=== PATIENT | female | born 1965 | race Caucasian/White ===

== ENCOUNTER 2017-04-03 20:45 | Emergency (ER) | payer BC ==
[~2017-04-03] VITALS: Ht 165.1 cm; Wt 66.0 kg
[~2017-04-03 20:45] MED LIST: AMOX500T PO; ASPI-130 PO; DICL-86 PO; FIORTAB4 PO; HYDR200T42 PO; LORT7.5T3 PO; PRED5TAB PO; PRIN10TA PO; RELP20TA PO; TEMA15CA PO; ZOFR4TAB3 SL
[2017-04-03 20:49] VITALS: BP 151/85; PULSE 85; RESP 15; TEMP 98.8; O2SAT 99
--- NOTE | 2017-04-03 21:42 | PD ---
HPI Chief Complaint: Injury Time Seen by Provider: 21:34 Travel History International Travel<30 days: No Contact w/Intl Traveler<30days: No Traveled to known affect area: No History of Present Illness HPI 51-year-old female presents for evaluation of dorsal left hand pain. She reports a prior to arrival her dog pulled her and she hit her left hand on the door. She was seen at an urgent care center and told that she "probably has a dislocation" in her hand and was referred here for further evaluation. She has a throbbing pain to the dorsal mid left hand which is constant, worse palpation , associated with bruising. Denies any numbness or tingling. She has no other complaints. PFSH Past Medical History Cancer: No Cardiovascular Problems: Yes (MVP) Diabetes: No Diminished Hearing: No Endocrine: No Genitourinary: No Headaches: Yes (MIGRAINES) Hepatitis: No Hiatal Hernia: No Hypertension: Yes (LISINOPRIL FOR VALVE ISSUE) Immune Disorder: Yes (LUPUS) Musculoskeletal: No Neurologic: Yes (MIGRAINES) Psychiatric: Yes (ANXIETY) Reproductive: Yes (PELVIC PAIN, OVARIAN CYST, FIBROIDS) Respiratory: No Migraines: Yes Thyroid Disease: No Tetanus Vaccination: Unknown Influenza Vaccination: Yes ?: Not Tubal Ligation: Yes Past Surgical History AICD: No Gynecologic Surgery: Yes (C SECTION, D & C, TUBAL LIG.) Hysterectomy: Yes Joint Replacement: No Pacemaker: No Other Surgery: Yes (LEFT LUMPECTOMY) Social History Alcohol Use: No Tobacco Use: No Substance Use: No Allergies-Medications (Allergen,Severity, Reaction): Coded Allergies: Bactrim (Verified Allergy, Severe, 04/03/17) Sulfa (Verified Allergy, Severe, 04/03/17) Reported Meds & Prescriptions Reported Meds & Active Scripts Active Tylenol-Codeine #3 (Acetaminophen-Codeine) 300-30 mg Tab 1 Tab PO Q6HR PRN Zofran ODT (Ondansetron HCl) 4 Mg Tab 4 Mg SL Q4-6H FOR NAUSEA/VOMITING Amoxicillin 500 Mg Cap 1 Tab PO TID Reported Temazepam 15 Mg Cap 15 Mg PO HS Prednisone 5 Mg Tab 10 Mg PO DAILY Lortab 7.5/500 (Acetaminophen/Hydrocodone Bitart) Tab 1 Tab PO Q6HPRN FOR PAIN Aspirin EC Low Dose (Aspirin) 81 Mg Tab 81 Mg PO DAILY Relpax 20 mg (Eletriptan 20 mg) 20 Mg Tab 40 Mg PO Q8HPRN Fioricet (Acetaminophen/Butalbital/Caffeine) Tab 1 Tab PO PRN Prinivil (Lisinopril) 10 Mg Tab 10 PO HS Voltaren (Diclofenac Sodium) 75 Mg Tabec 200 Mg PO DAILY Plaquenil (Hydroxychloroquine Sulfate) 200 Mg Tab 200 Mg PO BID Review of Systems Musculoskeletal: Positive: Pain Skin: Positive Other (positive for ecchymosis) Physical Exam Narrative GENERAL: Well-developed well-nourished female in no acute distress SKIN: Warm and dry. Ecchymosis noted to the dorsal left hand primarily localized to the third MCP joint. Associated tenderness to palpation. No open wounds. Extremities: Skin as noted above. The patient has pain with range of motion activities but she has full flexion and extension to the left hand MCP, PIP and DIP joints. Distal sensation, capillary refill is preserved. Data Data Last Documented VS Vital Signs Date Time Temp Pulse Resp B/P Pulse Ox O2 Delivery O2 Flow Rate FiO2 04/03/17 20:49 98.8 85 15 151/85 99 Room Air Orders Hand, Complete (Pbd7ced) (04/03/17 ) Ice/Cold Pack (04/03/17 21:37) Acetamin-Codeine 300-30 Mg (Tylenol-Code (04/03/17 21:45) MDM Medical Decision Making Medical Screen Exam Complete: Yes Emergency Medical Condition: Yes Medical Record Reviewed: Yes Differential Diagnosis Contusion, fracture, sprain, dislocation Narrative Course 51-year-old female with dorsal left hand pain after hitting her hand against a door. Examination reveals a contusion to the dorsal left hand. There is pain with range of motion but no range of motion limitation. Ice pack has been provided. She was given Tylenol with Codeine. X-ray imaging reveals no acute abnormalities. Examination is consistent with a contusion. She is stable for discharge, reassured, given a prescription for Tylenol with codeine for breakthrough pain. Diagnosis Primary Impression: Contusion of left hand Qualified Code: S60.222A - Contusion of left hand, initial encounter Additional Instructions: Ice pack several times a day 10-15 minutes at a time to the affected area. Take Tylenol with codeine for breakthrough pain. Do not drive or drink alcohol when taking this medication. Follow-up with primary care physician as needed. Return for any emergent medical conditions. Med/Other Pt SpecificInfo: Prescription(s) given Scripts Acetaminophen-Codeine (Tylenol-Codeine #3)300-30 mg Tab1 Tab PO Q6HR PRN (PAIN) #15 TAB Ref 0 Prov:Sarah Mejia DO 04/03/17 Disposition: 01 DISCHARGE HOME Condition: Stable Hai Cross April 03, 2017 21:42
[2017-04-03] MEDS ORDERED: ACETAMINOPHEN/CODEINE 300 MG/30 MG TAB PO ONE (21:45)
[2017-04-03] MEDS ORDERED: TYLETAB34 PO (22:00)
--- NOTE | 2017-04-03 22:22 | RADRPT ---
EXAM DATE/TIME: 04/03/2017 21:52 [facility] COMPARISON: No previous studies available for comparison. INDICATIONS : Left hand pain, fell into door MEDICAL HISTORY : Previous dislocation left thumb SURGICAL HISTORY : None. ENCOUNTER: Initial ACUITY: 1 day PAIN SCORE: 8/10 LOCATION: Left Hand FINDINGS: Three view examination of the left hand demonstrates no soft tissue swelling, dislocation, or fractur e. The carpal bones appear intact. The interphalangeal and metacarpophalangeal joints are intact. Bony mineralization is normal. CONCLUSION: Unremarkable examination of the left hand. Severiano López MD on April 03, 2017 at 22:19 Board Certified Radiologist. This report was verified electronically.
== END 2017-04-03 22:57 | disposition home or self-care (01) ==
LOC: NEPD 20:45
DX: S60.222A Contusion of left hand, initial encounter (principal); I10 Essential (primary) hypertension; W22.8XXA Striking against or struck by other objects, initial encounter; Y93.K1 Activity, walking an animal; Y92.009 Unspecified place in unspecified non-institutional (private) residence as the place of occurrence of the external cause
CPT/HCPCS: 73130; 99283